=== PATIENT | male | born 1990 | race African-American/Black ===

== ENCOUNTER 2019-11-07 18:12 | Emergency (ER) | payer SELFPAY ==
[~2019-11-07] VITALS: Ht 203.2 cm; Wt 89.4 kg
[2019-11-07 18:17] VITALS: BP 134/85
--- NOTE | 2019-11-07 18:32 | NUR ---
SWAB SAMPLE SENT TO LAB
--- NOTE | 2019-11-07 19:18 | NUR ---
Patient discharged to home in stable condition. Written and verbal after care instructions given. Patient verbalizes understanding of instruction.
== END 2019-11-07 19:20 | disposition home or self-care (01) ==
LOC: ER 18:12
DX: J02.8 Acute pharyngitis due to other specified organisms (principal); J45.909 Unspecified asthma, uncomplicated; F10.10 Alcohol abuse, uncomplicated; Y90.9 Presence of alcohol in blood, level not specified; Z98.890 Other specified postprocedural states
CPT/HCPCS: 86403-TC; 87070-TC